=== PATIENT | female | born 1990 | race Caucasian/White ===

== ENCOUNTER 2020-12-18 05:08 | Inpatient (IN) | payer OTHER ==
[~2020-12-18] VITALS: Ht 167.6 cm; Wt 107.5 kg
[2020-12-18 08:18] LABS: HEMOGLOBIN 10.5 gm/dl (12.3-15.3); RED BLOOD COUNT 4.22 M/UL (4.00-5.10); WHITE BLOOD COUNT 9.9 K/UL (4.5-11.0)
[2020-12-18 08:51] LABS: BUN/CREATININE RATIO 13 (0-10)
[2020-12-18] MEDS ORDERED: HYDROCODONE-AC1 EAC1 PO (14:08)
[2020-12-18] MEDS ORDERED: DOCUSATE SODIU100 MG PO (14:08)
[2020-12-18] MEDS ORDERED: IBUPROFEN800 MG PO (14:08)
[2020-12-19] MEDS ORDERED: GLUCOPHAGE XR500 M1 PO (00:53)
[2020-12-19] MEDS ORDERED: OMEPRAZOLE20 MG PO (00:53)
== END 2020-12-20 14:47 | disposition home or self-care (01) | DRG 788 ==
LOC: OB 05:08
PROVIDERS: ADMIT Obstetrics & Gynecology
PROC: 4A1HXCZ Monitoring of Products of Conception, Cardiac Rate, External Approach (ICD-10-PCS; 2020-12-18)
PROC: 10D00Z1 Extraction of Products of Conception, Low, Open Approach (ICD-10-PCS; principal; 2020-12-18 07:30)
DX: O24.425 Gestational diabetes mellitus in childbirth, controlled by oral hypoglycemic drugs (principal); O13.4 Gestational [pregnancy-induced] hypertension without significant proteinuria, complicating childbirth; Z3A.38 38 weeks gestation of pregnancy; Z37.0 Single live birth; Z20.822 Contact with and (suspected) exposure to COVID-19; O99.214 Obesity complicating childbirth; E66.9 Obesity, unspecified; O40.3XX0 Polyhydramnios, third trimester, not applicable or unspecified; Z96.669 Presence of unspecified artificial ankle joint; O99.62 Diseases of the digestive system complicating childbirth; K21.9 Gastro-esophageal reflux disease without esophagitis; Z79.84 Long term (current) use of oral hypoglycemic drugs; Z88.0 Allergy status to penicillin
CPT/HCPCS: 36415; 36600; 80053; 81001; 82800; 82962; 85014; 85018; 85025; 90715; J1580; J2274; J2370; J2590; J7120; U0002